=== PATIENT | male | born 2000 | race Caucasian/White ===

== ENCOUNTER 2022-05-24 12:19 | Emergency (ER) | payer BC, SELFPAY ==
--- NOTE | 2022-05-24 12:29 | ED.UPPEXIN ---
HPI - Extremity Injury (Upper) General Chief Complaint: Extremity Injury, Upper Stated Complaint: INJURED R WRIST Time Seen by Provider: 05/24/22 12:29 Source: patient and RN notes reviewed History of Present Illness HPI narrative: Patient is a 21-year-old male who presents to urgent care with complaints of right wrist pain and discomfort. Patient states it is mainly exacerbated with hyper extension of the wrist as well as heavy lifting. Patient states that started 1 month ago while he was rolling at the gym. States that he has been wearing a brace to the wrist which has helped with the pain and stability. Patient has not been taking anything [id number] for pain. No other acute complaints. Denies any known injury or trauma. No acute distress noted. Patient aware of the plan of care. Some parts of this dictation were generated by voice recognition software and may contain typographical and/or grammatical inaccuracies. Related Data Allergies Allergy/AdvReac Type Severity Reaction Status Date / Time Penicillins AdvReac Unknown Rash Verified 10/26/21 14:36 Review of Systems Review of Systems: CONSTITUTIONAL: Denies fever, chills, or sweats. EYES: Denies visual changes, redness, or discharge. ENT: Denies rhinorrhea, congestion, sore throat, or otalgia. CARDIOVASCULAR: Denies chest pain, palpitations, or edema. RESPIRATORY: Denies cough or dyspnea. GASTROINTESTINAL: Denies abdominal pain, nausea, vomiting, or diarrhea. GENITOURINARY: Denies dysuria or hematuria. SKIN: Denies rash or itching. MUSCULOSKELETAL: Reports right wrist pain and discomfort NEUROLOGIC: Denies headache, numbness, or weakness. All other systems reviewed are negative, except as documented in HPI. PMFSH Surgical History Surgical History (Updated 10/26/21 @ 14:36 by Andra Overton) [place] teeth extracted Comments At the time of my signature, I reviewed and agree with the nursing past medical, surgical, social, and family history. There is no relevant family history pertinent to the patient complaint. Exam Narrative: GENERAL: This is a well-nourished, well-developed patient, in no apparent distress. HEAD: normocephalic, atraumatic. EYES: PERRL. Sclera clear/white. Vision is grossly intact. EARS: External ears normal NOSE: External nose normal with no obvious nasal discharge, nares without redness, no rhinorrhea. THROAT: Mucous membranes moist NECK: Neck supple SKIN: warm, intact with no suspicious lesions or rash, good texture and turgor. NEURO: awake, alert, and oriented to person, place and time. There were no obvious focal neurologic abnormalities. EXTREMITIES: No obvious deformity, erythema, edema noted to the right upper extremity/wrist. Mild exacerbated pain on flexion. Positive strong right radial pulse with capillary refill less than 2 seconds. Course Course Level of Care: Express Care Visit Vital Signs Vital signs: Vital Signs Temperature 99 F 05/24/22 12:32 Pulse Rate 74 05/24/22 12:32 Respiratory Rate 16 05/24/22 12:32 Blood Pressure 125/76 05/24/22 12:32 Pulse Oximetry 99 05/24/22 12:32 Oxygen Delivery Room Air 05/24/22 12:32 Temperature 99 F 05/24/22 12:32 Pulse Rate 74 05/24/22 12:32 Respiratory Rate 16 05/24/22 12:32 Blood Pressure 125/76 05/24/22 12:32 Pulse Oximetry 99 05/24/22 12:32 Oxygen Delivery Room Air 05/24/22 12:32 Reviewed MDM - Extremity Injury (Upper) MDM Narrative Medical decision making narrative: Advised patient to continue wearing the splint/brace as needed for support and comfort. Use ice/Tylenol/ibuprofen as needed for pain. Stop repetitive motion and heavy lifting until pain has subsided. Complete the steroid regimen as prescribed. If you have increased pain and discomfort. Follow up with the referred orthopedic. Follow-up with your PCP within 2-5 days or for worsening symptoms or failure to improve. Patient deferred x-ray at this time and agrees wit
[2022-05-24 12:32] VITALS: BP 125/76; PULSE 74; RESP 16; TEMP 37.2; O2SAT 99
== END 2022-05-24 13:02 | disposition home or self-care (01) ==
PROVIDERS: Emergency Provider Nurse Practitioner Family; PCP Family Medicine Adolescent Medicine
DX: S63.501A Unspecified sprain of right wrist, initial encounter (principal); S66.911A Strain of unspecified muscle, fascia and tendon at wrist and hand level, right hand, initial encounter; X50.0XXA Overexertion from strenuous movement or load, initial encounter
CPT/HCPCS: 99203; G0463

== ENCOUNTER 2023-03-22 11:34 | Emergency (ER) | payer BC, SELFPAY ==
--- NOTE | 2023-03-22 11:38 | ED.UPPEXIN ---
HPI - Extremity Injury (Upper) General Chief Complaint: Extremity Injury, Upper Stated Complaint: Right Elbow Pain Time Seen by Provider: 03/22/23 11:38 Source: patient Mode of arrival: ambulatory Limitations: no limitations History of Present Illness HPI narrative: Patient is a 22-year-old male who presents with right elbow pain that has been intermittent for 2 weeks. Patient states it worsens with repetitive motion and movement while at work. Denies any numbness tingling weakness to forearm wrist or hand when pain is present. Denies any swelling, bruising or obvious injury to the elbow. Denies any pain at this time. Has not used an Edwardo wrap, ice or [id number] pain medicine. Related Data Home Medications Medication Instructions Recorded Confirmed isotretinoin 30 mg capsule 30 mg PO DIRECTED 03/22/23 03/22/23 (Zenatane) Allergies Allergy/AdvReac Type Severity Reaction Status Date / Time Penicillins AdvReac Unknown Rash Verified 03/22/23 11:43 Review of Systems Review of Systems: All systems reviewed & are unremarkable except as noted in HPI and below Constitutional: Constitutional: Denies body ache(s), Denies chills, Denies fatigue, Denies fever(s), Denies headache(s), Denies malaise and Denies weakness Eyes: Eyes: Denies blurry vision, Denies irritation and Denies loss of vision ENT: Denies otalgia, Denies headache(s), Denies nasal discharge, Denies sinus pain and Denies sore throat Cardiovascular: Cardiovascular: Denies chest pain, Denies irregular heart rhythm and Denies dyspnea Respiratory: Respiratory: Denies dyspnea Gastrointestinal: Gastrointestinal: Denies abdominal pain, Denies melena, Denies hematochezia, Denies diarrhea, Denies nausea and Denies vomiting Musculoskeletal: Musculoskeletal: Denies back pain, Denies myalgias and Reports arthralgias Integumentary/Breasts: Skin/Breast: Denies pruritus and Denies rash Neurologic: Denies headache(s), Denies loss of vision and Denies weakness Psychiatric: Psychiatric: Reports no additional psychiatric complaints Endocrine: Endocrine: Denies fatigue PMFSH Surgical History Surgical History [place] teeth extracted Social History Social History (Reviewed 03/22/23 @ 13:01 by ISAIAS Rios Smoking status: Never smoker Alcohol intake: current Alcohol use details: rare Substance use: never Comments At time of signature, agree with nursing past medical, surgical, social and family history. There is no relevant family history pertinent to the presenting complaint. Exam Const: General: cooperative, healthy appearing, comfortable, no acute distress and well nourished Nutritional Appearance: well nourished Orientation/consciousness: patient oriented x3 Limitations: no limitations HENMT: Head: normal to inspection, normocephalic and atraumatic Ears: hearing grossly normal bilaterally and external ears normal Face/Nose/Sinus: Normal external nose present, normal facial exam and face symmetric Face and sinus: normal facial exam and face symmetric Mouth: Yes lip normal Eyes: General: appearance normal, both eyes and all related structures Alignment and Position: alignment normal and position normal Periorbital: periorbital findings normal Eyelids: eyelids normal Pupils: Equal, round and reactive pupils present EOM: EOMs intact bilaterally Neck: Neck: normal visual inspection, full ROM and supple Chest: Chest palpation & inspection: normal inspection of the chest Resp: Effort & Inspection: normal respiratory effort and able to speak in complete sentences Auscultation: clear to auscultation bilaterally Cardio: Rate: regular rate Rhythm: regular rhythm Heart sounds: S1 normal heart sound present and S2 normal heart sound present GI: Inspection: normal to inspection Skin: General skin exam: normal color and no rashes or lesions noted Neuro: General: patient eliza
[2023-03-22 11:45] VITALS: BP 122/71; PULSE 60; RESP 16; TEMP 35.9; O2SAT 100
== END 2023-03-22 12:48 | disposition home or self-care (01) ==
PROVIDERS: Emergency Provider Nurse Practitioner Family; PCP Family Medicine Adolescent Medicine
DX: M77.11 Lateral epicondylitis, right elbow (principal)
CPT/HCPCS: 99213; G0463